=== PATIENT | male | born 1975 | race Two or more races ===

== ENCOUNTER 2021-02-28 08:58 | Outpatient (REF) | payer MEDICAID, SELFPAY ==
[2021-02-28 10:27] LABS: Mean Corpuscular HGB Conc 33.3 g/dl (31.0-36.0); Mean Corpuscular Hemoglobin 31.5 pg (27.0-33.0); Mean Corpuscular Volume 94.5 fL (80.0-98.0); Mean Platelet Volume 10.1 fL (9.4-12.4); Platelet Count 266 X10*3/uL (160-400); Red Blood Count 5.08 X10*6/uL (4.60-5.80); Red Cell Distribution Width 12.5 % (11.0-16.0); White Blood Count 5.1 X10*3/uL (4.8-10.8)
[2021-02-28 10:58] LABS: Alanine Aminotransferase 25 U/L (0-40); Albumin Level 4.5 g/dL (3.5-5.0); Alkaline Phosphatase 58 U/L (39-117); Anion Gap 9 (12-20); Aspartate Amino Transferase 16 U/L (5-37); Bilirubin Total 0.6 mg/dL (0.0-1.0); Blood Urea Nitrogen 14 mg/dL (9-16); Calcium 9.7 mg/dL (8.4-10.2); Carbon Dioxide 33 mmol/L (22-29); Chloride 104 mmol/L (96-108); Estimated Glomerular Filt Rate > 60; Glucose Random 110 mg/dL (60-115); Potassium 4.5 mmol/L (3.3-5.1); Sodium 141 mmol/L (135-145); Total Protein 7.4 g/dL (6.5-8.0)
== END 2021-02-28 08:59 | disposition home or self-care (01) ==
LOC: HO.LAB 08:58
PROVIDERS: PCP Internal Medicine Geriatric Medicine; Referring Provider Internal Medicine Geriatric Medicine; Visit Provider Nurse Practitioner Family
DX: Z01.818 Encounter for other preprocedural examination (principal)
CPT/HCPCS: 36415; 80053; 85027; 99202

== ENCOUNTER 2021-08-09 07:16 | Day surgery (SDC) | payer MEDICAID, SELFPAY ==
--- NOTE | 2021-08-08 15:07 | HO.ANESPROP2 ---
Documented by User: Sahra Rowley NP 08/08/21 15:09 HPI - Anesthesia Eval Consult details Narrative: 46yo M for Colonoscopy [facility] Past Medical History Medical History (Updated 02/23/21 @ 11:36 by NGUYỄN Laura) Chronic bilateral low back pain Chronic shoulder pain Family history of diabetes mellitus Family hx of colon cancer FHx: coronary arteriosclerosis High cholesterol Pre-diabetes Renal stone Screening for prostate cancer Family History Family History Brother Colon cancer Father Coronary artery disease Diabetes mellitus Maternal Grandfather Colon cancer Surgical History Surgical History Hx of umbilical hernia repair Social History Social History (Updated 02/28/21 @ 09:04 by Winnie Agarwal) Household Members: Spouse Alcohol intake: current Alcohol intake frequency: holidays/special occasions only Alcohol type: beer and hard liquor Patient Tobacco Use Status: Never used Tobacco Substance Use Type: Marijuana Advance Directives: No Advance Directives Information Provided: Yes Meds Allergies Allergy/AdvReac Type Severity Reaction Status Date / Time No Known Allergies Allergy Verified 08/03/21 11:03 Home Medications Medication Instructions Recorded Confirmed Last Taken Type atorvastatin 20 mg tablet 20 mg PO DAILY 02/23/21 08/09/21 Unknown History lidocaine 5 % topical patch 1 patch topical DAILY 02/23/21 08/09/21 Unknown History (Lidoderm) Exam Exam Date and Time: August 08, 2021 1507 Pertinent Lab Results Pertinent Lab Results: Laboratory Tests 02/28/21 02/28/21 10:06 10:06 WBC 5.1 Hgb 16.0 Hct 48.0 Plt Count 266 Sodium 141 Potassium 4.5 Chloride 104 Carbon Dioxide 33 H BUN 14 Creatinine 1.04 Assessment and Plan Assessment Anesthesia Assessment: Chart Reviewed Documented by User: Rosanna Dickerson MD 08/09/21 08:23 [facility] Past Medical History Medical History (Updated 02/23/21 @ 11:36 by NGUYỄN Laura) Chronic bilateral low back pain Chronic shoulder pain Family history of diabetes mellitus Family hx of colon cancer FHx: coronary arteriosclerosis High cholesterol Pre-diabetes Renal stone Screening for prostate cancer Family History Family History Brother Colon cancer Father Coronary artery disease Diabetes mellitus Maternal Grandfather Colon cancer Family history of problems with anesthesia: No Surgical History Surgical History Hx of umbilical hernia repair History of Problems with Anesthesia: No Social History Social History (Updated 02/28/21 @ 09:04 by Winnie Agarwal) Household Members: Spouse Alcohol intake: current Alcohol intake frequency: holidays/special occasions only Alcohol type: beer and hard liquor Patient Tobacco Use Status: Never used Tobacco Substance Use Type: Marijuana Advance Directives: No Advance Directives Information Provided: Yes Meds Allergies Allergy/AdvReac Type Severity Reaction Status Date / Time No Known Allergies Allergy Verified 08/03/21 11:03 Home Medications Medication Instructions Recorded Confirmed Last Taken Type atorvastatin 20 mg tablet 20 mg PO DAILY 02/23/21 08/09/21 Unknown History lidocaine 5 % topical patch 1 patch topical DAILY 02/23/21 08/09/21 Unknown History (Lidoderm) Exam Height,Weight and Vital Signs: Height 5 ft 6 in Weight 90.718 kg Vital Signs Temp Pulse Resp BP Pulse Ox O2 Del Method 08/09/21 07:47 98.0 F 91 18 134/71 96 Room Air Airway Mallampati Class: III TM Dist: >3cm Neck ROM: Full Loose/Missing/Broken Teeth: Yes (1 broken tooth top left back) Heart: RRR Lungs: CTAB Assessment and Plan Assessment Anesthesia Assessment: Anesthesia Plan Discussed Final Anesthetic Review Family History of Problems with Anesthesia: No History of Problems with Anesthesia: No NPO: Yes ASA Class: II Final Preanesthetic Review: No Changes in Pt Med Stat, Meds/Allgs Chart Reviewed, Consent Obtained/Reviewed and Anes Risks/Benef Reviewed Patient Risk: Low Procedure Risk: Low Assessment/Block/Sedation in SS: Assess/Block/Sedation-SS Anesthetic Plan Anesthetic Plan: MAC: Disposition: Standard PACU
[2021-08-09 07:47] VITALS: BP 134/71; PULSE 91; RESP 18; TEMP 36.7; O2SAT 96
[2021-08-09 07:49] VITALS: BMI 32.3
[2021-08-09] MEDS: Lactated Ringers 1,000 ML 100 ML IVCONT (07:59)
--- NOTE | 2021-08-09 08:26 | P.HPSUR_ITS ---
Pre-Procedural Eval Section A Date of Service: 08/09/21 Section B Chief Complaint: screening Details of Present Illness: brother with CRC aged 53 Relevant Family History (Specify if Yes): Yes Relevant Social History: Other (specify) (THC) Present Medications: see Short Stay Collaborative assessment Medical History: Significant History (Chronic bilateral low back pain Chronic shoulder pain Family history of diabetes mellitus Family hx of colon cancer FHx: coronary arteriosclerosis High cholesterol Pre-diabetes Renal stone Screening for prostate cancer) History of Previous Operations: Relevant previous surgery/procedure and date(s) (Hx of umbilical hernia repair) Allergies: Allergies Allergy/AdvReac Type Severity Reaction Status Date / Time No Known Allergies Allergy Verified 08/03/21 11:03 Review of Systems Sugical H&P ROS: Negative: Constitution, Cardiovascular, Respiratory, Neurological, Psychiatric, Hem-Onc, Allergic/Immunologic, Gastrointestinal, Genitourinary, Musculoskeletal, Integumentary, Endocrine and Eyes/Ears/ Nose/Throat Exam Surgical H&P Exam: Normal: HEENT, Normal: Heart, Normal: Lungs, Normal: Extremities, Normal: Abdomen, Normal: Skin and Normal: Neurological Plan Diagnosis/Plan: Unchanged I have reviewed the history and physical and performed a pertinent physical examination on my patient. No changes have occurred unless specified.
--- NOTE | 2021-08-09 08:28 | P.BOP_ITS ---
Brief Operative Note Date of Service: 08/09/21 Pre-op diagnosis: colon screening Post-op diagnosis: same Procedure: see op note Surgeon: Teresa Jha MD Anesthesia: MAC Was an Sales Representative Livestock used for this Procedure?: No Estimated blood loss (mL): 0 Condition: stable Disposition: PACU
--- NOTE | 2021-08-09 08:28 | W.PM.OPN ---
Operative Note Operative Note Date of Service: 08/09/21 Narrative: Operative Information Procedure Description: Colonoscopy Indication: colon screen, FH of CRC in brother Anesthesia: MAC COLONOSCOPY Instrument: Olympus variable stiffness pediatric scope 190L Colonoscopy Monitoring: Vital signs and clinical assessment, continuous EKG monitoring, Pulse oximetry, Carbon Dioxide monitoring and blood pressure monitoring were done throughout the procedure. Colon withdrawal time was 7 minutes. Procedure: The patient was placed in the left lateral decubitis position and pre-procedure medications were administered. After a digital rectal examination of the ano-rectum, the video colonoscope was inserted into the rectum and advanced through the colon to the cecum/TI. The colonoscope was slowly withdrawn in a retrograde panoramic fashion and the colon mucosa was carefully examined including a retroflexed view of the rectum. Findings and interventions are described below. Procedure Difficulty: easy Findings: Terminal Ileum-normal Cecum:normal Right sided retroflexion- normal Ascending Colon: normal Transverse Colon -normal Descending Colon:normal Sigmoid Colon: normal Rectum: Retroflexion with small internal hemorrhoids, grade I Anorectum - normal Colon preparation: [place] Bowel Preparation Scale Right colon; 2 Transverse colon: 3 Left colon; 3 (0 = Unprepared colon segment with mucosa not seen due to solid stool that cannot be cleared. 1 = Portion of mucosa of the colon segment seen, but other areas of the colon segment not well seen due to staining, residual stool and/or opaque liquid. 2 = Minor amount of residual staining, small fragments of stool and/or opaque liquid, but mucosa of colon segment seen well. 3 = Entire mucosa of colon segment seen well with no residual staining, small fragments of stool or opaque liquid) Impression and Post Procedure Diagnosis: internal hemorrhoids Plan: High fiber diet leaflet Avoid straining at stool, epsom salts and sitz bath, anusol supps or cream Repeat Colonoscopy in 5 years due to FH or earlier if clinically indicated Above findings were reviewed with the patient and relevant handouts were provided if indicated.
[2021-08-09 08:54] VITALS: BP 106/64; PULSE 88; RESP 16; TEMP 36.2; O2SAT 95
[2021-08-09 09:09] VITALS: BP 109/65; PULSE 85; RESP 18; O2SAT 99
[2021-08-09 09:24] VITALS: BP 123/79; PULSE 84; RESP 18; O2SAT 94
[2021-08-09 09:48] VITALS: TEMP 36.6
== END 2021-08-09 10:51 | disposition home or self-care (01) ==
PROVIDERS: PCP Internal Medicine Geriatric Medicine; Visit Provider Internal Medicine Gastroenterology
PROC: 0DJD8ZZ Inspection of Lower Intestinal Tract, Via Natural or Artificial Opening Endoscopic (ICD-10-PCS; CPT 45378; principal; 2021-08-09 08:30)
DX: Z12.11 Encounter for screening for malignant neoplasm of colon (principal); Z80.0 Family history of malignant neoplasm of digestive organs; K64.0 First degree hemorrhoids; R73.03 Prediabetes; E78.00 Pure hypercholesterolemia, unspecified; Z79.899 Other long term (current) drug therapy; Z87.442 Personal history of urinary calculi; F12.90 Cannabis use, unspecified, uncomplicated
CPT/HCPCS: 45378

== ENCOUNTER 2022-09-28 10:14 | Emergency (ER) | payer OTHER, MEDICAID, SELFPAY ==
[2022-09-28 10:18] VITALS: BP 154/93; PULSE 79; RESP 19; TEMP 36.6; O2SAT 97; BMI 31.5
--- NOTE | 2022-09-28 11:04 | ED.BACK ---
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 Denies direct injury/trauma or fall, check Tylenol REPORT CHECKER without relief. Reports intermittent pain radiating down lower extremities. Denies numbness, tingling, weakness, dysuria/hematuria, urinary incontinence/retention MD elicited complaint: back pain Related Data Home Medications Medication Instructions Recorded Confirmed atorvastatin 20 mg tablet 20 mg PO DAILY 02/23/21 08/09/21 lidocaine 5 % topical patch 1 patch topical DAILY 02/23/21 08/09/21 (Lidoderm) Previous Rx's Medication Instructions Recorded bisacodyl 5 mg tablet,delayed 10 mg PO ONCE 1 day #2 tabs 02/28/21 release (Dulcolax (bisacodyl)) polyethylene glycol 3350 17 238 g PO ONCE #238 grams 02/28/21 gram/dose oral powder (Miralax) acetaminophen 500 mg tablet 500 mg PO Q6H PRN fever or pain 09/28/22 (Tylenol Extra Strength) #14 tabs cyclobenzaprine 5 mg tablet 5 mg PO Q8H PRN pain (scale score 09/28/22 7-10) 5 days #14 tabs lidocaine 5 % topical patch 1 patch topical DAILY PRN pain #30 09/28/22 (Lidoderm) ea naproxen 500 mg tablet 500 mg PO BID PRN pain 10 days #20 09/28/22 tabs Allergies Allergy/AdvReac Type Severity Reaction Status Date / Time No Known Allergies Allergy Verified 08/03/21 11:03 Review of Systems Review of Systems: Constitutional: No Fever, No Chills ENT/Mouth: No Ear Pain, No Nasal Congestion, No sore throat, No Rhinorrhea, No Swallowing Difficulty Cardiovascular: No Chest Pain, No SOB Respiratory: No Cough, No Sputum Gastrointestinal: No Nausea, No Vomiting, No Abdominal pain Genitourinary: No Dysuria, No Hematuria, No Urinary Incontinence/retention, No Flank Pain Musculoskeletal: + joint pain, No Myalgias, No Joint Swelling Skin: No Skin Lesions, No rash Neuro: No Weakness, No Numbness, No Paresthesias Yes all other systems are reviewed and are negative Constitutional: Constitutional: Reports as per HPI Neurologic: Denies Sensory deficit (Neuro) [facility] Past Medical History Attestation statement: The following information was validated with the patient. Source: old records reviewed Medical History Chronic bilateral low back pain Chronic shoulder pain Family history of diabetes mellitus Family hx of colon cancer FHx: coronary arteriosclerosis High cholesterol Pre-diabetes Renal stone Screening for prostate cancer Surgical History Hx of colonoscopy Hx of umbilical hernia repair Family History Family History Brother Colon cancer Father Coronary artery disease Diabetes mellitus Maternal Grandfather Colon cancer Social History Social History Household Members: Spouse Alcohol intake: current Alcohol intake frequency: holidays/special occasions only Alcohol type: beer and hard liquor Patient Tobacco Use Status: Never used Tobacco Substance Use Type: Marijuana Advance Directives: No Advance Directives Information Provided: No Physical Exam Vital Signs: Vital Signs: Last Vital Signs Temp 98 F 09/28/22 10:18 Pulse 79 09/28/22 10:18 Resp 19 09/28/22 10:18 BP 154/93 H 09/28/22 10:18 Pulse Ox 97 09/28/22 10:18 O2 Del Method Room Air 09/28/22 10:18 BMI result Body Mass Index 31.5 Const: General: cooperative, healthy appearing and no acute distress Orientation/consciousness: patient oriented x3 Limitations: no limitations HEENT: Head: Yes normal to inspection and Yes atraumatic Ears: hearing grossly normal bilaterally General nose exam: Normal external nose present Face and sinus: Yes normal facial exam Eyes: General: appearance normal, both eyes and all related structures EOM: EOMs intact bilaterally Neck: Neck: Yes normal visual inspection and Yes no meningeal signs Resp: Effort & Inspection: normal respiratory effort and no respiratory distress Auscultation: clear to auscultation bilaterally Cardio: Rate: regular rate Heart sounds: S1 normal heart sound present and S2 normal heart sound present GI: Inspection: Yes normal to inspection Palpation (GI): Soft to palpation, nontender, no guarding and not rigid : General: Yes no CVA tenderness Back/Spine/Pelvis: Other: No midline cervical/thoracic/lumbar spinous tenderness/step-off or deformity. + bilateral lumbar paraspinal reproducible tenderness with appreciable muscle spasming. Back: no CVA tenderness Skin: Rashes: no rashes Wounds: no wounds Neuro: Other: Strength intact throughout. No saddle anesthesia. Sensation intact to light touch. Neurovascular intact distally General: patient oriented x3, gait normal, tone normal, moves all extremities, no meningeal signs and no focal motor deficits Gait exam (Neuro): Normal gait present Motor exam (neuro): 5/5 motor strength present throughout Sensory Exam: No Sensory deficit (Neuro) Extrem: General: Yes normal to inspection Medications Administered Discontinued Medications Generic Name Dose Route Start Last Admin Trade Name Freq PRN Reason Stop Dose Admin Cyclobenzaprine HCl 10 mg 09/28/22 11:03 09/28/22 11:15 Cyclobenzaprine Hcl 10 Mg Tablet PO 09/28/22 11:04 10 mg ONCE ONE Administration Ketorolac Tromethamine 30 mg 09/28/22 11:02 09/28/22 11:15 Ketorolac Tromethamine 30 Mg/Ml Vial IM 09/28/22 11:03 30 mg ONCE ONE Administration Lidocaine 1 patch 09/28/22 11:03 09/28/22 11:14 Lidocaine 4 % Patch Adh..Patch TRANSDERMA 09/28/22 11:04 1 patch ONCE ONE Administration Protocol Medical Decision Making Medical Decision Making MDM Narrative: 47-year-old male with no significant past medical history presenting to the ED complaining of 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 On exam vital signs stable, NAD, nontoxic appearing, physical exam as noted above with appreciable muscle spasming and reproducible tenderness, no midline spinous tenderness or red flag symptoms, ambulating with steady gait when no saddle anesthesia. Concern for MSK pain/spasming vs strain or herniated disc. Low suspicion for cauda equina, cord compression, fracture, epidural abscess or dissection Plan: Pain control, Work connection follow-up Please refer to course for remaining clinical decision making, interpretation of labs/imaging results, and discussions with consultants and/or family members. Differential Diagnosis Differential Diagnoses: The differential diagnosis associated with the presentation includes As above Admission/Observation Consideration of admission/observation: Escalation of care including admission/observation considered Lab Data MDM Lab Attestation statement: I reviewed the patient's lab results. Radiology Impression Discussion of test interpretation with radiology: I have reviewed the radiologist's reading. External Record Review External record reviewed: Inpatient record, Office record, Outpatient record, Prior outpatient labs, Prior outpatient radiology, Primary care record and Outside ED record Tests considered The following testing was considered but not selected: As above Prescription Management I considered prescription management with: Pain Medication Discharge Plan Discharge Clinical Impression: Lumbar radiculopathy Patient Disposition: Home, Self-Care Instructions: Acute Low Back Pain (ED) Additional Instructions: Your pain is likely musculoskeletal Flexeril is a muscle relaxer, take at night as it makes you drowsy, do not drive, drink alcohol, or operate machinery while taking it Naproxen as an anti-inflammatory / pain medication, take with food Lidoderm patches are numbing patches, apply to painful area In addition take Tylenol at home If symptoms persist or worsen, pain becomes unbearable, you developed urinary retention or incontinence, or weakness return to the ED Es probable que boyd dolor sea musculoesquel?stef Flexeril es un relajante muscular, t?ashia por la noche ya que te adormece, no conduzcas, bebas alcohol ni operes maquinaria mientras lo nata. Naproxeno meg medicamento antiinflamatorio/analg?sico, t?rodriguez con alimentos Los parches de Lidoderm son parches anest?sicos, se aplican en el ?florencia dolorida Adem?s belen Tylenol en casa Si los s?ntomas persisten o empeoran, el dolor se vuelve insoportable, desarroll? retenci?n urinaria o incontinencia, o debilidad, regrese al servicio de urgencias. Prescriptions: New acetaminophen [Tylenol Extra Strength] 500 mg tablet 500 mg PO Q6H PRN (Reason: fever or pain) Qty: 14 0RF lidocaine [Lidoderm] 5 % adhesive patch,medicated 1 patch topical DAILY MDD remove after 12 hours PRN (Reason: pain) Qty: 30 0RF Rx Instructions: leave on most painful area for up to 12 hrs naproxen 500 mg tablet 500 mg PO BID PRN (Reason: pain) 10 Days Qty: 20 0RF cyclobenzaprine 5 mg tablet 5 mg PO Q8H PRN (Reason: pain (scale score 7-10)) 5 Days Qty: 14 0RF No Action atorvastatin 20 mg tablet 20 mg PO DAILY lidocaine [Lidoderm] 5 % adhesive patch,medicated 1 patch topical DAILY Rx Instructions: leave on most painful area for up to 12 hrs bisacodyl [Dulcolax (bisacodyl)] 5 mg tablet,delayed release (DR/EC) 10 mg PO ONCE 1 Days Qty: 2 0RF Rx Instructions: take 2 tabs at noon the day before your colonoscopy polyethylene glycol 3350 [Miralax] 17 gram/dose powder 238 g PO ONCE Qty: 238 0RF Rx Instructions: As directed by gastroenterology department at [facility] Referrals: [facility] [Outside] Name,MD Nadeem [Primary Care Provider] - 1 week Stand Alone Forms: Work/School Release Interventions: ED Discharge Assessment Last Done: 09/28/22 11:40 Discharge Date/Time: 09/28/22 11:56 Print Language: Korean
[2022-09-28] MEDS: Lidocaine 4 % Patch ADH..PATCH 1 PATCH TRANSDERMA (11:14)
[2022-09-28] MEDS: Cyclobenzaprine HCl 10 MG TABLET PO (11:15)
[2022-09-28] MEDS: Ketorolac Tromethamine 30 MG/ML VIAL IM (11:15)
== END 2022-09-28 11:56 | disposition home or self-care (01) ==
LOC: HO.ED 11:52
PROVIDERS: Emergency Provider Student in an Organized Health Care Education/Training Program; PCP Internal Medicine Geriatric Medicine
DX: M54.16 Radiculopathy, lumbar region (principal); M79.605 Pain in left leg; M79.604 Pain in right leg; Z79.899 Other long term (current) drug therapy
CPT/HCPCS: 96372; 99283; 99284; J1885

== ENCOUNTER 2024-12-28 18:44 | Emergency (ER) | payer SELFPAY ==
--- NOTE | ~2024-12-28 | XR_ITS ---
CLINICAL HISTORY: cough 2 view chest x-ray Comparison: None provided Findings: Lungs are clear without acute infiltrates. No pneumothorax. Heart size normal. No acute bony abnormalities. Impression: No acute processes This document has been electronically signed by: Aleks Farr MD on 12/28/2024 19:56:46
[2024-12-28 19:00] VITALS: BP 122/82; PULSE 103; RESP 20; TEMP 36.9; O2SAT 96; BMI 33.1
--- NOTE | 2024-12-28 19:00 | ED.URI ---
HPI - URI/Sore Throat General Chief Complaint: Upper Respiratory Symptoms Stated Complaint: throat pain ? infection Time Seen by Provider: 12/28/24 21:18 Source: patient, family, RN notes reviewed and life skills teacher Mode of arrival: ambulatory Limitations: language barrier History of Present Illness ED Provider: Dr. Yamile Garces HPI Narrative: 49-year-old male with no significant past medical history presenting with cough and shoulder pain that is been ongoing for the last 2 weeks. Describes a dry cough that is occasionally productive of clear sputum. Admits this cough has been consistent for the last 2 weeks. Denies associated fever. No specific known sick contacts. 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 Has never been diagnosed with asthma. Denies abdominal pain, nausea, vomiting, bowel changes or urinary complaints. Does not take any medications. Related Data Home Medications ?Medication ?Instructions ?Recorded ?Confirmed atorvastatin 20 mg tablet 20 mg PO DAILY 02/23/21 08/09/21 lidocaine 5 % topical patch 1 patch topical DAILY 02/23/21 08/09/21 (Lidoderm) Previous Rx's ?Medication ?Instructions ?Recorded bisacodyl 5 mg tablet,delayed 10 mg (2 x 5 mg) PO ONCE 1 day #2 02/28/21 release (Dulcolax (bisacodyl)) tabs polyethylene glycol 3350 17 238 g PO ONCE #238 grams 02/28/21 gram/dose oral powder (Miralax) acetaminophen 500 mg tablet 500 mg PO Q6H PRN fever or pain 09/28/22 (Tylenol Extra Strength) #14 tabs cyclobenzaprine 5 mg tablet 5 mg PO Q8H PRN pain (scale score 09/28/22 7-10) 5 days #14 tabs lidocaine 5 % topical patch 1 patch topical DAILY PRN pain #30 09/28/22 (Lidoderm) ea naproxen 500 mg tablet 500 mg PO BID PRN pain 10 days #20 09/28/22 tabs albuterol sulfate 90 mcg/actuation 2 inh inhalation Q4H PRN shortness 12/28/24 breath activated powder inhaler of breath #1 ea prednisone 50 mg tablet 50 mg PO DAILY 5 days #5 tabs 12/28/24 Allergies Allergy/AdvReac Type Severity Reaction Status Date / Time No Known Allergies Allergy Verified 12/28/24 19:05 Review of Systems Review of Systems: As per HPI, full review of systems performed and negative but for the above mentioned pertinent positives and negatives. [facility] Past Medical History Medical History FHx: coronary arteriosclerosis Screening for prostate cancer High cholesterol Family hx of colon cancer Renal stone Chronic shoulder pain Family history of diabetes mellitus Pre-diabetes Chronic bilateral low back pain Surgical History Hx of colonoscopy Hx of umbilical hernia repair Family History Family History Brother Colon cancer Father Coronary artery disease Diabetes mellitus Maternal Grandfather Colon cancer Social History Social History Household Members: Spouse Alcohol intake: current Alcohol intake frequency: holidays/special occasions only Alcohol type: beer and hard liquor Patient Tobacco Use Status: Never used Tobacco Substance Use Type: Marijuana Advance Directives: No Advance Directives Information Provided: No Physical Exam Exam: Exam: GENERAL: Well-Appearing, conversant, no acute distress. SKIN: Normal skin color for ethnicity, warm, dry, no rashes noted. HEENT: Normocephalic, atraumatic, no stridor, posterior oropharynx nonerythematous, dentition intact, EOMI. NECK: Soft, supple, full ROM, midline structures nontender, no step-offs, no deformities, no lymphadenopathy. CHEST: Heart regular rate and rhythm, no murmurs, symmetric chest rise and fall. PULMONARY: Clear to auscultation bilaterally, no labored breathing, occasional bronchospastic cough with intermittent faint expiratory wheeze. ABDOMINAL: Soft, nondistended, nontender, positive bowel sounds in all quadrants. : Deferred. MUSCULOSKELETAL: Normal tone, full range of motion, no deformities, no peripheral edema. NEURO: Alert and oriented x3, CN II through XII intact, equal strength and sensation bilateral upper and lower extremities, no focal neurologic deficits. PSYCHIATRIC: Normal affect, fluid speech, good eye contact and appropriate demeanor. Vital Signs: Vital Signs: Last Vital Signs Temp 98.4 F 12/28/24 22:20 Pulse 103 H 12/28/24 22:20 Resp 20 12/28/24 22:20 BP 122/82 12/28/24 22:20 Pulse Ox 96 12/28/24 22:20 O2 Del Method Room Air 12/28/24 22:20 BMI result Body Mass Index 33.1 Course Course Course Narrative: This is a Rapid Medical Exam performed in triage by Louann Angelo PA-C. Full HPI, ROS and PE to be performed by primary ED provider. 49 yo M w/PMHx HLD, presenting to the ED c/o cough x yesterday w/assoc neck pain when coughing. Also reports sore throat PE: dry cough noted, lungs CTA, +posterior oropharyngeal erythema. uvula midline. talking in complete sentences Plan: CXR, viral testing, rapid strep Medications Administered Discontinued Medications Generic Name Dose Route Start Last Admin Trade Name Freq PRN Reason Stop Dose Admin Albuterol Sulfate 2 puff 12/28/24 22:09 12/28/24 22:25 Albuterol Sulfate 90 Mcg 8 Gm Inhaler INHALE 12/28/24 22:10 2 puff ONCE ONE Administration Diazepam 2 mg 12/28/24 22:10 12/28/24 22:25 Diazepam 2 Mg Tablet PO 12/28/24 22:11 2 mg ONCE ONE Administration Prednisone 50 mg 12/28/24 22:09 12/28/24 22:24 Prednisone 10 Mg Tablet PO 12/28/24 22:10 50 mg ONCE ONE Administration Medical Decision Making Medical Decision Making [facility] Narrative: Patient presents today with flu-like symptoms. Differential diagnosis includes influenza, coronavirus, pneumonia, upper respiratory infection, among others. Most importantly, this patient is not in any acute respiratory distress. They have normal oxygen levels at room air. Clinically, patient presents as bronchospastic cough. I discussed with him the possibility of cough variant asthma and have given him a prescription for albuterol as well as a short course of prednisone. I have discussed medication and other home therapies that will help the patient and have discussed strict return precautions. Instructed that symptoms may worsen and the patient might need re-evaluation or even hospitalization in the future, but did not show signs of this at the time of discharge. Differential Diagnosis Differential Diagnoses: The differential diagnosis associated with the presentation includes (As above) Lab Data [facility] Lab Attestation statement: I reviewed the patient's lab results. Labs: Lab Results 12/28/24 Range/Units 19:37 COVID-19 (SREA) Negative (Negative) COVID-19 Clin Com See Note Influenza Type A (JESSE) Negative (Negative) Influenza Type B (JESSE) Negative (Negative) Influenza A & B Note See Note S. pyogenes GrpA JESSE Negative (Negative) Independent Interpretation I performed an independent interpretation of an: Plain X-Ray Interpretation: My independent interpretation of the chest x-ray reveals no consolidations, pulmonary edema, pleural effusion, pneumothorax, obvious bony abnormalities. Radiology Impression Discussion of test interpretation with radiology: I have reviewed the radiologist's reading. Independent Historian Clinical information obtained from an independent historian. History obtained from or confirmed by: Spouse Prescription Management I considered prescription management with: Other (Steroids, albuterol) Chronic Conditions Patient?s care impacted by: Other (Hyperlipidemia) Discharge Plan Discharge Clinical Impression: Acute bronchitis with bronchospasm Patient Disposition: Home, Self-Care Instructions: Acute Bronchitis (ED), Bronchospasm (ED) Additional Instructions: Use your albuterol inhaler as needed for coughing fits. Take prednisone for the next 5 days. Return to the emergency department immediately with any new or worsening symptoms including: Worsening pain despite prednisone and breathing treatments, fevers greater than 100?, cough productive of yellow/green/bloody sputum, any new symptom that concerns you. Call 911 with any medical emergency. Prescriptions: New prednisone 50 mg tablet 50 mg PO DAILY 5 Days Qty: 5 0RF albuterol sulfate 90 mcg/actuation aerosol powdr breath activated 2 inh inhalation Q4H PRN (Reason: shortness of breath) Qty: 1 0RF No Action acetaminophen [Tylenol Extra Strength] 500 mg tablet 500 mg PO Q6H PRN (Reason: fever or pain) Qty: 14 0RF lidocaine [Lidoderm] 5 % adhesive patch,medicated 1 patch topical DAILY MDD remove after 12 hours PRN (Reason: pain) Qty: 30 0RF Rx Instructions: leave on most painful area for up to 12 hrs naproxen 500 mg tablet 500 mg PO BID PRN (Reason: pain) 10 Days Qty: 20 0RF cyclobenzaprine 5 mg tablet 5 mg PO Q8H PRN (Reason: pain (scale score 7-10)) 5 Days Qty: 14 0RF atorvastatin 20 mg tablet 20 mg PO DAILY lidocaine [Lidoderm] 5 % adhesive patch,medicated 1 patch topical DAILY Rx Instructions: leave on most painful area for up to 12 hrs bisacodyl [Dulcolax (bisacodyl)] 5 mg tablet,delayed release (DR/EC) 10 mg PO ONCE 1 Days Qty: 2 0RF Rx Instructions: take 2 tabs at noon the day before your colonoscopy polyethylene glycol 3350 [Miralax] 17 gram/dose powder 238 g PO ONCE Qty: 238 0RF Rx Instructions: As directed by gastroenterology department at [facility] Interventions: ED Discharge Assessment Last Done: 12/28/24 22:20 Discharge Date/Time: 12/28/24 22:31 Print Language: Lao
[2024-12-28 20:12] LABS: COVID-19 Test Negative (Negative); IDNOW Serial# 08D9AD1C; IDNOW Serial# 55D5AD1C; IDNOW Serial# 58CA691E; Influenza B2 Negative (Negative); Strep A Nucleic Acid Negative (Negative)
--- OUTSIDE RECORDS SUMMARY | 2024-12-28 20:49 | XMS_ITS | Clinical Summary ---
Author Organization [employer] Address [address] [place] [address] Care Team Providers Care Garage Door Technician Name Role Phone Unavailable Primary Care Provider Unavailabl e Medications atorvastatin (Lipitor) 20 MG tabletIndication s:High cholesterol Take 1 tablet (20 mg) by mouth in the morning. 30 tablet 10 01/27/2022 Active atorvastatin (Lipitor) 20 MG tablet Take 1 tablet by mouth at bed time. 01/04/2021 Active Encounters Date Type Department Care Team Description 12/28/2024 Orders Only [facility] External Provider, [facility] from Last 3 Months Social History Tobacco Use Types Packs/Day Years Used Date Smoking Tobacco: Never Assessed Sex and Gender Information Value Date Recorded Sex Assigned at Male 12/26/2021 10:30 AM EDT Legal Sex Male 10:30 AM EDT Gender Identity Male 12/26/2021 10:30 AM EDT Sexual Orientation Straight 12/26/2021 10 :30 AM EDT Last Filed Vital Signs Vital Sign Reading Time Taken Comments Blood Pressure 110/80 01/04/2021 12:11 AM EST Pulse 72 01/04/2021 12:11 AM EST Temperature - - Respiratory Rate - - Oxygen Saturation - - Inhaled Oxygen Concentration - - Weight 93.6 kg (206 lb 6.4 oz) 01/04/2021 12:11 AM EST Height 171.4 cm (5' 7.47 ) 01/04/2021 12:[address] Body Mass Index 31.88 01/04/2021 12:11 AM EST Plan of Treatment Health Maintenance Due Date Last Done Comments CT Colonography 1973 Colonoscopy 1973 Colorectal Cancer Screening 1973 Depression Screening 1973 FIT DNA/Cologuard 1973 FIT 1973 FOBT 1973 Sigmoidoscopy 1973 Disability Screening 1973 Alcohol/Substance Use Screening 1985 Tobacco Screening 1985 Family Planning (PISQ) 1988 Hepatitis B Vaccines (1 of 3 - 19+ 3-dose series) 1992 Pneumococcal Vaccine: 50+ Years (1 of 1 - PCV) 2023 Zoster Vaccines (1 of 2) 2023 COVID-19 Vaccine (3 - season) 2024 07/14/2020, 06/23/2020 Influenza Vaccine (#1) 2024 , 12/31/2019, 01/07/2019, Additional history exists Lipid Panel 01/14/2026 01/14/2021, 09/26, 05/12/2020 DTaP/Tdap/Td Vaccines (2 - Td or Tdap) 06/01/2026 06/01/2016 RSV Patients and Patients Aged 60 years or older (1 - 1-dose 75+ series) 2048 HIB Vaccines Aged Out No longer eligi ble based on patient's age to complete this topic HPV Vaccines Aged Out No longer eligi ble based on patient's age to complete this topic Hepatitis A Vaccines Aged Out No long er eligible based on patient's age to complete this topic IPV Vaccines Aged Out No longer eligi ble based on patient's age to complete this topic Meningococcal B Vaccine Aged Out No l onger eligible based on patient's age to complete this topic Meningococcal Vaccine Aged Out No judit mckenna eligible based on patient's age to complete this topic RSV under 20 months Aged Out No longe r eligible based on patient's age to complete this topic Rotavirus Vaccines Aged Out No longer eligible based on patient's age to complete this topic Procedures Procedure Name Priority Date/Time Associated Diagnosis Comments XR CHEST 2 VIEWS Routine 12/28/2024 7:56 PM EST COVID-19 ID NOW (LEPE) Routine 12/28/2024 7:37 PM EST STREP A NUCLEIC ACID Routine 12/28/2024 7:37 PM EST INFLUENZA A B2 ID NOW (LEPE) Routine 12/28/2024 7:37 PM EST LIPID PANEL, STANDARD Routine 01/14/2021 8:31 AM EST from Last 3 Months or Most Recently Relevant to Health Maintenance Results * XR Chest 2 Views (12/28/2024 7:56 PM EST) Anatomical Region Laterality Modality Chest Radiographic Pebbles ging 12/28/2024 7:56 PM EST Narrative 12/28/2024 7:58 PM EST [address] [address] XRay Report Signed Patient: Graham Felipe MR#: [id number] : 1975 Acct:[id number] Age/Sex: 49 / M ADM Date: 12/28/24 Loc: .ED Attending Dr: Ordering Physician: Louann Angelo Date of Service: 12/28/24 Procedure(s): XR chest 2V Accession Number(s): [id number] cc: Nadeem Nogueira MD; Louann Angelo Reason for Exam: cough CLINICAL HISTORY: cough 2 view chest x-ray Comparison: None provided Findings: Lungs are clear without acute infiltrates. No pneumothorax. Heart size normal. No acute bony abnormalities. Impression: No acute processes This document has been electronically signed by: Aleks Farr MD on 12/28/2024 19:56:46 Dictated By: Aleks Farr MD Signed By: <Electronically signed by Aleks Farr MD in OV> 12/28/241956 DD/ 55 TD/TT: 12/28/241955 Pumping Station Supervisor: Procedure Note Donotuseinterpreter, Image - 12/28/[address] [address] XRay Report Signed Patient: Graham FelipeMR#: [id number] : 1975Acct:[id number] Age/Sex: 49 / MADM Date: 12/28/24 Loc: PEDRO.ED Attending Dr: Ordering Physician: Louann Angelo Date of Service: 12/28/24 Procedure(s): XR chest 2V Accession Number(s): [id number] cc: Name,Nadeem TIERNEY; Louann Angelo Reason for Exam: cough CLINICAL HISTORY: cough 2 view chest x-ray Comparison: None provided Findings: Lungs are clear without acute infiltrates. No pneumothorax. Heart size normal. No acute bony abnormalities. Impression: No acute processes This document has been electronically signed by: Aleks Farr MD on 12/28/2024 19:56:46 Dictated By: Aleks Farr MD Signed By: <Electronically signed by Aleks Farr MD in OV> 12/28/241956 DD/ 55 TD/TT: 12/28/241955 Pumping Station Supervisor: [facility] External Provider IMG XR PROCEDURES Edited Result - Final * Influenza A B2 ID NOW ([employer]) (12/28/2024 7:37 PM EST) IDNOW SERIAL# [id number] [facility] Influenza A Negative Negative [facility] Influenza B2 Negative Negative [facility] Influenza A B2 Note See Note [facility] Comment:The [employer] ID NOW In fluenza A B2 test is used for thequalitative detection of influenza A and B from patientswith signs and symptoms of respiratory infection.Negative results do not preclude influenza virus infectionand should not be used as the sole basis for diagnosis,treatment or other patient management decisions.There is a risk of false negative results due to thepresence of variants in the viral targets of the assay, lowlevels of virus in the specimen and co- infection withRespiratory Syncytial Virus. 12/28/2024 7:37 PM EST 12/28/2024 7:40 PM EST Generic External Data Provider LAB MICROBIOLOGY - GENERAL ORDERABLES Final Result [facility] [address] [place] [phone] * Strep A Nucleic Acid (12/28/2024 7:37 PM EST) IDNOW SERIAL# [id number] [facility] Strep A Nucleic Acid Negative Negative [facility] Comment:All test results mus t be correlated with clinical findings.This test has not been evaluated for monitoring treatment ofinfection.Additional follow-up testing using the culture method isrequired if the result is negative and clinical symptomspersist, or in the event of an acute rheumatic feveroutbreak. 12/28/2024 7:37 PM EST 12/28/2024 7:40 PM EST us Generic External Data Provider LAB MICROBIOLOGY - GENERAL ORDERABLES Final Result [facility] [address] [place] [phone] * COVID-19 ID NOW (LEPE) (12/28/2024 7:37 PM EST) IDNOW SERIAL# [id number] [facility] COVID-19 TEST Negative Negative [facility] COVID-19 NOTE See Note [facility] Comment: Results are for the identification of SARS-CoV2 RNA. TheSARS-CoV2 RNA is generally detectable in respiratory samplesduring the acute phase of infection. Positive results areindicative of the presence of SARS-CoV-2 RNA; clinicalcorrelation with patient history and other diagnosticinformation is necessary to determine patient infectionstatus. Positive results do not rule out bacterial infectionor co- infection with other viruses.Testing facilities within the [facility] and itsterritories are required to report all positive results tothe appropriate public health authorities.Negative results should be treated as presumptive and, ifinconsistent with clinical signs and symptoms or necessaryfor patient management, should be tested with differentauthorized or cleared molecular tests. Negative results donot preclude SARS-CoV2 RNA infection and should not be usedas the sole basis for patient management decisions. Negativeresults should be considered in the context of a patient'srecent exposures, history and the presence of clinical signsand symptoms consistent with COVID-19.This test has been authorized by the FDA under an EmergencyUse Authorization (EUA) for use by authorized laboratories.Testing performed on the [employer] ID NOW utilizing NAAT. 12/28/2024 7:37 PM EST 12/28/2024 7:40 PM EST us Generic External Data Provider LAB MOLECULAR FLORENTIN GNOSTICS ORDERABLES Final Result Performing Organization Address [facility] Co de Phone Number [facility] [address] [place] [phone] * (ABNORMAL) LIPID PANEL, STANDARD (01/14/2021 8:31 AM EST) Chol/HDLC Ratio 6.1(H) <5.0 (calc) [facility] Cholesterol, Total 244(H) <200 mg/dL [facility] HDL Cholesterol 40 > OR = 40 mg/dL [facility] LDL Cholesterol 176(H) mg/dL (calc) [facility] Comment: Reference range: <100 Desirable range <100 mg/dL for primary prevention; <70 mg/dL for patients with CHD or diabetic patients with > or = 2 CHD risk factors. LDL-C is now calculated using the Cholo-Mcfarland calculation, which is a validated novel method providing better accuracy than the Friedewald equation in the estimation of LDL-C. Cholo SS et al. PATRICIA. 2013;310(19): 9308-0346 (http://education.schoox.com/faq/GVK356) Non-HDL Cholesterol 204(H) <130 mg/dL (calc) [facility] Comment: For patients with diabetes plus 1 major ASCVD risk factor, treating to a non-HDL-C goal of <100 mg/dL (LDL-C of <70 mg/dL) is considered a therapeutic option. Triglycerides 140 <150 mg/dL [facility] 01/14/2021 8:31 AM EST us Nadeem Nogueira MD LAB BLOOD ORDERABLES Final Resul t Performing Organization Address City/[facility]/ZIP Co de Phone Number [facility] [address] [place] [address], [place] from Last 3 Months or Most Recently Relevant to Health Maintenance
--- OUTSIDE RECORDS SUMMARY | 2024-12-28 20:49 | XMS_ITS | Encounter Summary ---
Author Organization [facility] [employer] [facility] Address [address] [place] [address] Care Team Providers Care Director Of Compliance Name Role Phone Unavailable Primary Care Provider Unavailabl e Encounter Details Date Type Department Care Team (Late st Contact Info) Description 12/28/2024 Orders Only [facility] External Provider, [facility] Social History Tobacco Use Types Packs/Day Years Used Date Smoking Tobacco: Never Assessed Sex and Gender Information Value Date Recorded Sex Assigned at Male 12/26/2021 10:30 AM EDT Legal Sex Male 10:30 AM EDT Gender Identity Male 12/26/2021 10:30 AM EDT Sexual Orientation Straight 12/26/2021 10 :30 AM EDT documented as of this encounter Plan of Treatment Not on file documented as of this encounter Procedures Procedure Name Priority Date/Time Associated Diagnosis Comments XR CHEST 2 VIEWS Routine 12/28/2024 7:56 PM EST INFLUENZA A B2 ID NOW (bMobilized) Routine 12/28/2024 7:37 PM EST STREP A NUCLEIC ACID Routine 12/28/2024 7:37 PM EST COVID-19 ID NOW (bMobilized) Routine 12/28/2024 7:37 PM EST documented in this encounter Results * XR Chest 2 Views (12/28/2024 7:56 PM EST) Anatomical Region Laterality Modality Chest Radiographic Pebbles ging 12/28/2024 7:56 PM EST Narrative 12/28/2024 7:58 PM EST [facility] [address] [place] [id number] XRay Report Signed Patient: Graham Felipe MR#: [id number] : 1975 Acct:[id number] Age/Sex: 49 / M ADM Date: 12/28/24 Loc: HO.ED Attending Dr: Ordering Physician: Louann Angelo Date of Service: 12/28/24 Procedure(s): XR chest 2V Accession Number(s): [id number] cc: Nadeem Nogueira MD; Louann Angelo Reason [...] in OV> 12/28/241956 DD/ 55 TD/TT: 12/28/241955 [employer] Log: Procedure Note Donotlakeishainterpreter, Image - 12/28/2024 [place] [address] XRay Report Signed Patient: Graham FelipeMR#: [id number] : 1975Acct:[id number] Age/Sex: 49 / MADM Date: 12/28/24 Loc: .ED Attending Dr: Ordering Physician: Louann Angelo Date of Service: 12/28/24 Procedure(s): XR chest 2V Accession Number(s): [id number] cc: Nadeem Nogueira MD; Louann Angelo Reason [...] in OV> 12/28/241956 DD/ 55 TD/TT: 12/28/241955 [employer] [place] Log: [facility] External Provider IMG XR PROCEDURES Edited Result - Final * Strep A Nucleic Acid (12/28/2024 7:37 PM EST) IDNOW SERIAL# [id number] [facility] Strep A Nucleic Acid Negative Negative [facility] Comment:All test results mus t be correlated with clinical findings.This test has not been evaluated for monitoring treatment ofinfection.Additional follow-up testing using the culture method isrequired if the result is negative and clinical symptomspersist, or in the event of an acute rheumatic feveroutbreak. 12/28/2024 7:37 PM EST 12/28/2024 7:40 PM EST Generic External Data Provider LAB MICROBIOLOGY - GENERAL ORDERABLES Final Result Performing Organization Address City/State/[facility] Co de Phone Number [facility] [address] [place] [phone] * COVID-19 ID NOW (LEPE) (12/28/2024 7:37 PM EST) IDNOW SERIAL# [id number] [facility] COVID-19 TEST Negative Negative [facility] COVID-19 NOTE See Note [facility] Comment: Results are for the identification of SARS-CoV2 RNA. TheSARS-CoV2 RNA is generally detectable in respiratory samplesduring the acute phase of infection. Positive results areindicative of the presence of SARS-CoV-2 RNA; clinicalcorrelation with patient history and other diagnosticinformation is necessary to determine patient infectionstatus. Positive results do not rule out bacterial infectionor co- infection with other viruses.[facility] facilities [facility] and itsterritories are required to report all [...] use by authorized laboratories.Testing performed on the [place] ID NOW utilizing NAAT. 12/28/2024 7:37 PM EST 12/28/2024 7:40 PM EST Generic External Data Provider LAB MOLECULAR FLORENTIN GNOSTICS ORDERABLES Final Result Performing Organization Address [facility] [address]/ZIP Co de Phone Number [facility] [address] [place] [phone] * Influenza A B2 ID NOW ([place]) (12/28/2024 7:37 PM EST) IDNOW SERIAL# [id number] [facility] Influenza A Negative Negative [facility] Influenza B2 Negative Negative [facility] Influenza A B2 Note See Note [facility] Comment:The [place] ID NOW In fluenza [...] LAB MICROBIOLOGY - GENERAL ORDERABLES Final Result Performing Organization Address [facility] [address]/[facility] Co de Phone Number [facility] [address] [place] [phone] documented in this encounter Visit Diagnoses Not on filedocumented in this encounter
[2024-12-28 22:20] VITALS: BP 122/82; PULSE 103; RESP 20; TEMP 36.9; O2SAT 96
[2024-12-28] MEDS: Albuterol Sulfate 90 MCG 8 GM INHALER 2 PUFF INHALE (22:25)
== END 2024-12-28 22:31 | disposition home or self-care (01) ==
PROVIDERS: Physician Assistant; Emergency Provider Emergency Medicine; PCP Internal Medicine Geriatric Medicine
DX: J20.9 Acute bronchitis, unspecified (principal); J02.9 Acute pharyngitis, unspecified; R05.9 Cough, unspecified; Z03.818 Encounter for observation for suspected exposure to other biological agents ruled out
CPT/HCPCS: 71046; 87502; 87635; 87651; 99282; 99284

== ENCOUNTER → 2024-12-28 19:00 | Outpatient (BNV) | payer SELFPAY | PROVIDERS: PCP Internal Medicine Geriatric Medicine; Visit Provider Radiology Diagnostic Radiology | DX: R05.9 Cough, unspecified (principal) | CPT/HCPCS: 71046 ==